=== PATIENT | male | born 1950 | race Caucasian/White ===

== ENCOUNTER 2021-07-06 07:09 | Day surgery (SDC) | payer MEDICARE ==
[2021-06-27 10:12] VITALS: BMI 29.5
[2021-07-06] MEDS ORDERED: Lidocaine 1% MPF 2 ML VIAL ONE (08:08)
[2021-07-06] MEDS ORDERED: PROPOFOL 20 ML ONE (09:44)
[2021-07-06] MEDS ORDERED: Fentanyl 100 MCG/2 ML VIAL ONE (09:44)
== END 2021-07-06 10:45 | disposition home or self-care (01) ==
LOC: CSHSDC 07:09
PROVIDERS: ATTEND Internal Medicine Gastroenterology
PROC: 0DB68ZZ Excision of Stomach, Via Natural or Artificial Opening Endoscopic (ICD-10-PCS; principal; 2021-07-06)
DX: K25.9 Gastric ulcer, unspecified as acute or chronic, without hemorrhage or perforation (principal); K29.50 Unspecified chronic gastritis without bleeding; K74.69 Other cirrhosis of liver; I10 Essential (primary) hypertension; E11.9 Type 2 diabetes mellitus without complications; M10.9 Gout, unspecified; E78.5 Hyperlipidemia, unspecified
CPT/HCPCS: 76700; 88305; 88342; J2704; J3010

== ENCOUNTER 2021-07-14 08:10 | Outpatient (CLI) | payer MEDICARE | END 2021-07-14 08:11 | disposition home or self-care (01) | LOC: CSHCT 08:10 | PROVIDERS: ATTEND Internal Medicine Gastroenterology | DX: K74.60 Unspecified cirrhosis of liver (principal); R16.0 Hepatomegaly, not elsewhere classified; Z90.49 Acquired absence of other specified parts of digestive tract; R16.1 Splenomegaly, not elsewhere classified | CPT/HCPCS: 74170; 82565 ==